=== PATIENT | male | born 1930 | race Caucasian/White ===

== ENCOUNTER 2018-07-20 10:57 | Emergency (ER) | payer MEDICARE, BC ==
[2018-07-20] MEDS ORDERED: MIDAZOLAM 2 MG/2 ML SOL IV PRN (11:01)
[2018-07-20] MEDS ORDERED: ALBUTEROL/IPRATROPIUM 1 VIAL SOL INH ONE (11:36)
[2018-07-20] MEDS ORDERED: ALBUTEROL/IPRATROPIUM 1 VIAL SOL ONE (11:42)
[2018-07-20 11:53] LABS: BASOPHILS % (AUTO) 0 % (0-3); EOSINOPHILS % (AUTO) 1 % (0-9); HEMATOCRIT 37 % (39-53); HEMOGLOBIN 11.5 gm/dl (13.5-17.7); LYMPHOCYTES % (AUTO) 16.7 % (10-50); MEAN CORPUSCULAR HEMOGLOBIN 28.3 pg (27.0-32.0); MEAN CORPUSCULAR HGB CONC 30.9 gm/dl (32.0-36.0); MEAN CORPUSCULAR VOLUME 92 fL (80-100); MONOCYTES % (AUTO) 15.5 % (0-12); NEUTROPHILS % (AUTO) 66.4 % (37-80)
[2018-07-20 12:03] LABS: INR 0.97 (0.86-1.12)
[2018-07-20 12:13] LABS: ALBUMIN 3.3 gm/dl (3.4-5.0); ALKALINE PHOSPHATASE 91 IU/L (46-116); ALT 55 IU/L (14-63); AST 39 IU/L (15-37); BILIRUBIN,TOTAL 0.5 mg/dl (0.2-1.0); BLOOD UREA NITROGEN 32 mg/dl (7-18); CALCIUM 8.8 mg/dl (8.5-10.1); GLUCOSE 67 mg/dl (74-106); POTASSIUM 4.6 mMol/L (3.5-5.1); SODIUM 141 mMol/L (136-145); TOTAL PROTEIN 6.6 gm/dl (6.4-8.2); TROP I < 0.017 ng/ml (0.000-0.056)
[2018-07-20 12:19] LABS: CARBON DIOXIDE 32.4 mEq/L (21-32); CHLORIDE 103 mMol/L (98-107)
[2018-07-20 14:13] VITALS: TEMP 97.6
[2018-07-20 18:50] VITALS: BP 157/98; PULSE 59; RESP 14; O2SAT 96
== END 2018-07-20 14:30 | disposition home or self-care (01) | DRG 204 ==
LOC: ED 10:57
DX: R06.02 Shortness of breath (principal); J44.1 Chronic obstructive pulmonary disease with (acute) exacerbation; R42 Dizziness and giddiness
CPT/HCPCS: 36415; 71045; 80053; 83880; 84484; 85025; 85610; 93005; 99283

== ENCOUNTER 2018-08-03 08:34 | Inpatient (IN) | payer MEDICARE, BC ==
[2018-08-03 09:35] LABS: BASOPHILS % (AUTO) 0 % (0-3); EOSINOPHILS % (AUTO) 2 % (0-9); HEMATOCRIT 36 % (39-53); HEMOGLOBIN 11.6 gm/dl (13.5-17.7); LYMPHOCYTES % (AUTO) 15.1 % (10-50); MEAN CORPUSCULAR HEMOGLOBIN 29.4 pg (27.0-32.0); MEAN CORPUSCULAR HGB CONC 32.3 gm/dl (32.0-36.0); MEAN CORPUSCULAR VOLUME 91 fL (80-100); MONOCYTES % (AUTO) 13.1 % (0-12); NEUTROPHILS % (AUTO) 68.9 % (37-80)
[2018-08-03 09:59] LABS: LACTIC ACID < 0.8 mMol/L (0.0-2.0)
[2018-08-03 10:00] LABS: ALBUMIN 3.5 gm/dl (3.4-5.0); ALKALINE PHOSPHATASE 101 IU/L (46-116); ALT 56 IU/L (14-63); AST 35 IU/L (15-37); BILIRUBIN,TOTAL 0.5 mg/dl (0.2-1.0); BLOOD UREA NITROGEN 23 mg/dl (7-18); CALCIUM 8.8 mg/dl (8.5-10.1); CHLORIDE 103 mMol/L (98-107); CREATININE 1.06 mg/dl (0.80-1.30); GLUCOSE 77 mg/dl (74-106); POTASSIUM 4.7 mMol/L (3.5-5.1); SODIUM 142 mMol/L (136-145); TOTAL PROTEIN 6.7 gm/dl (6.4-8.2); TROP I < 0.017 ng/ml (0.000-0.056)
[2018-08-03] MEDS ORDERED: SOLUMEDROL 125 MG/2 ML 125 MG/2 ML PDS IV ONE (10:13)
[2018-08-03] MEDS ORDERED: SOLUMEDROL 125 MG/2 ML 125 MG/2 ML PDS ONE (10:13)
[2018-08-03] MEDS: SODIUM CHLORIDE 0.9% FLUSH 10 ML SOL IV PRN ×2 (10:19→12:20)
[2018-08-03 10:28] LABS: APPEARANCE,URINE Clear; BILIRUBIN,URINE NEGATIVE (NEGATIVE); COLOR,URINE Yellow; GLUCOSE, URINE (UA) NEGATIVE (NEGATIVE); KETONES,URINE NEGATIVE (NEGATIVE); LEUKOCYTE ESTERASE ,URINE NEGATIVE (NEGATIVE); NITRATE,URINE NEGATIVE (NEGATIVE); OCCULT BLOOD,URINE NEGATIVE (NEG-TRACE); PH,URINE 5.5; UROBILINOGEN,URINE 0.2 (0.2-1.0 EU)
[2018-08-03 10:38] LABS: BACTERIA RARE (< 1+); CRYSTALS NEGATIVE (0-3 AVE/HPF); EPITHELIAL CELLS 0-2 (SQUAMOUS); RBC,URINE 0-2 (0-3AV/HPF); WBC,URINE 0-2 (0-5AV/HPF)
[2018-08-03] MEDS ORDERED: LORAZEPAM 2 MG/ML 1 MG in SODIUM CHLORIDE 20 ML 9 ML IV ONE (12:14)
[2018-08-03] MEDS ORDERED: LORAZEPAM 2 MG/ML SOL ONE (12:16)
[2018-08-03] MEDS: ENOXAPARIN 40 MG SOL SC SCH (14:29)
[2018-08-03 14:58] LABS: BASOPHILS % (AUTO) 0 % (0-3); EOSINOPHILS % (AUTO) 1 % (0-9); HEMATOCRIT 34 % (39-53); HEMOGLOBIN 11.1 gm/dl (13.5-17.7); LYMPHOCYTES % (AUTO) 6.9 % (10-50); MEAN CORPUSCULAR HEMOGLOBIN 29.9 pg (27.0-32.0); MEAN CORPUSCULAR HGB CONC 32.5 gm/dl (32.0-36.0); MEAN CORPUSCULAR VOLUME 92 fL (80-100); NEUTROPHILS % (AUTO) 90.2 % (37-80)
[2018-08-03] MEDS ORDERED: SODIUM CHLORIDE 0.9% FLUSH 10 ML SOL IV SCH (17:30)
[2018-08-03] MEDS: SODIUM CHLORIDE 0.9% FLUSH 10 ML SOL IV SCH (19:30)
[2018-08-03] MEDS: FAMOTIDINE 20 MG TAB PO SCH (20:34)
[2018-08-04] MEDS: ENOXAPARIN 40 MG SOL SC SCH ×3 (01:49→22:47)
[2018-08-04] MEDS: SODIUM CHLORIDE 0.9% FLUSH 10 ML SOL IV SCH ×5 (06:21→21:00)
[2018-08-04] MEDS: LEVOTHYROXINE SODIUM 50 MCG TAB PO SCH ×2 (06:21→06:43)
[2018-08-04 07:34] LABS: BASOPHILS % (AUTO) 0 % (0-3); EOSINOPHILS % (AUTO) 0 % (0-9); HEMATOCRIT 35 % (39-53); HEMOGLOBIN 11.1 gm/dl (13.5-17.7); LYMPHOCYTES % (AUTO) 9.7 % (10-50); MEAN CORPUSCULAR HEMOGLOBIN 29.5 pg (27.0-32.0); MEAN CORPUSCULAR HGB CONC 31.9 gm/dl (32.0-36.0); MEAN CORPUSCULAR VOLUME 92 fL (80-100); MONOCYTES % (AUTO) 12.1 % (0-12); NEUTROPHILS % (AUTO) 77.9 % (37-80)
[2018-08-04 07:37] LABS: CALCIUM 8.8 mg/dl (8.5-10.1); CREATININE 1.14 mg/dl (0.80-1.30)
[2018-08-04 07:56] LABS: CARBON DIOXIDE 33.5 mEq/L (21-32); POTASSIUM 4.5 mMol/L (3.5-5.1)
[2018-08-04] MEDS: ALBUTEROL HFA 60 PUFF/INHALER INH PRN ×3 (09:12→21:01)
[2018-08-04] MEDS: POLYETHYLENE GLYCOL 17 GM/1 TBS PDS PO SCH (09:12)
[2018-08-04] MEDS: FAMOTIDINE 20 MG TAB PO SCH ×2 (09:12→21:00)
[2018-08-04] MEDS: ALLOPURINOL 100 MG TAB PO SCH (09:12)
[2018-08-04] MEDS ORDERED: ALBUTEROL NEB SOL 2.5MG/3ML 1 VIAL SOL NEB PRN (15:14)
[2018-08-04] MEDS ORDERED: AZITHROMYCIN 500 MG PDS 500 MG in SODIUM CHLORIDE 0.9% 250 ML 250 ML IV SCH (15:15)
[2018-08-04] MEDS ORDERED: AZITHROMYCIN 500 MG PDS IV ONE ×2 (15:20→15:27)
[2018-08-04] MEDS ORDERED: SODIUM CHLORIDE 0.9% 250 ML 250 ML IV ONE (15:27)
[2018-08-04] MEDS: SOLUMEDROL 125 MG/2 ML 125 MG/2 ML PDS IV SCH ×2 (15:38→22:49)
[2018-08-04] MEDS: ALBUTEROL NEB SOL 2.5MG/3ML 1 VIAL SOL NEB PRN (15:39)
[2018-08-04] MEDS ORDERED: SOLUMEDROL 125 MG/2 ML 125 MG/2 ML PDS IV SCH (16:45)
[2018-08-05] MEDS: SODIUM CHLORIDE 0.9% FLUSH 10 ML SOL IV SCH ×4 (04:31→22:08)
[2018-08-05] MEDS: SOLUMEDROL 125 MG/2 ML 125 MG/2 ML PDS IV SCH ×4 (04:31→22:08)
[2018-08-05] MEDS: LEVOTHYROXINE SODIUM 50 MCG TAB PO SCH (07:19)
[2018-08-05] MEDS: POLYETHYLENE GLYCOL 17 GM/1 TBS PDS PO SCH (08:38)
[2018-08-05] MEDS: ALLOPURINOL 100 MG TAB PO SCH (08:38)
[2018-08-05] MEDS: FAMOTIDINE 20 MG TAB PO SCH ×2 (08:38→20:20)
[2018-08-05] MEDS ORDERED: AZITHROMYCIN 500 MG PDS IV ONE ×2 (08:43→09:00)
[2018-08-05] MEDS ORDERED: SODIUM CHLORIDE 0.9% 250 ML 250 ML IV ONE (08:43)
[2018-08-05] MEDS: SODIUM CHLORIDE 0.9% FLUSH 10 ML SOL IV PRN (08:56)
[2018-08-05] MEDS: ENOXAPARIN 40 MG SOL SC SCH ×2 (11:18→22:07)
[2018-08-05] MEDS: ALBUTEROL NEB SOL 2.5MG/3ML 1 VIAL SOL NEB PRN ×2 (13:44→22:13)
[2018-08-05] MEDS: AZITHROMYCIN 250 MG TAB PO SCH (22:16)
[2018-08-06] MEDS: SOLUMEDROL 125 MG/2 ML 125 MG/2 ML PDS IV SCH ×2 (03:40→10:20)
[2018-08-06] MEDS: SODIUM CHLORIDE 0.9% FLUSH 10 ML SOL IV SCH ×2 (03:40→11:46)
[2018-08-06] MEDS: SODIUM CHLORIDE 0.9% FLUSH 10 ML SOL IV PRN ×2 (03:41→11:44)
[2018-08-06] MEDS: LEVOTHYROXINE SODIUM 50 MCG TAB PO SCH (06:12)
[2018-08-06] MEDS: POLYETHYLENE GLYCOL 17 GM/1 TBS PDS PO SCH (09:17)
[2018-08-06] MEDS: FAMOTIDINE 20 MG TAB PO SCH ×2 (09:18→21:25)
[2018-08-06] MEDS: AZITHROMYCIN 250 MG TAB PO SCH (09:18)
[2018-08-06] MEDS: ALLOPURINOL 100 MG TAB PO SCH (09:18)
[2018-08-06] MEDS: ENOXAPARIN 40 MG SOL SC SCH ×2 (11:28→23:02)
[2018-08-06] MEDS: ALBUTEROL NEB SOL 2.5MG/3ML 1 VIAL SOL NEB PRN ×2 (11:33→21:31)
[2018-08-06 16:09] VITALS: TEMP 97.5
[2018-08-06] MEDS ORDERED: MAGNESIUM HYDROXIDE 30 ML SUS PO ONE (18:40)
[2018-08-06 21:46] VITALS: RESP 22
[2018-08-07 00:04] VITALS: O2SAT 91
[2018-08-07] MEDS: LEVOTHYROXINE SODIUM 50 MCG TAB PO SCH (06:57)
[2018-08-07 07:40] VITALS: BP 136/81; PULSE 62
[2018-08-07] MEDS: FAMOTIDINE 20 MG TAB PO SCH (09:54)
[2018-08-07] MEDS: POLYETHYLENE GLYCOL 17 GM/1 TBS PDS PO SCH (09:54)
[2018-08-07] MEDS: ALLOPURINOL 100 MG TAB PO SCH (09:55)
[2018-08-07] MEDS: AZITHROMYCIN 250 MG TAB PO SCH (09:55)
[2018-08-07] MEDS: ENOXAPARIN 40 MG SOL SC SCH (11:32)
== END 2018-08-07 16:34 | disposition home or self-care (01) | DRG 644 ==
LOC: ED 08:34 → UNDOADMIN 11:44 → ACUTE CARE 11:44
PROVIDERS: ADMIT Family Medicine; ATTEND Family Medicine
PROC: F01K5YZ Range of Motion and Joint Integrity Assessment of Musculoskeletal System - Upper Back / Upper Extremity using Other Equipment (ICD-10-PCS; principal; 2018-08-03)
PROC: F01K0FZ Muscle Performance Assessment of Musculoskeletal System - Upper Back / Upper Extremity using Assistive, Adaptive, Supportive or Protective Equipment (ICD-10-PCS; 2018-08-03)
PROC: F01ZBZZ Bed Mobility Assessment (ICD-10-PCS; 2018-08-03)
DX: E03.9 Hypothyroidism, unspecified (principal); J44.1 Chronic obstructive pulmonary disease with (acute) exacerbation; R42 Dizziness and giddiness; R26.81 Unsteadiness on feet; H53.8 Other visual disturbances; R53.1 Weakness; R06.02 Shortness of breath; R41.82 Altered mental status, unspecified
CPT/HCPCS: 36415; 70450; 71045; 80048; 80053; 81001; 83880; 84484; 85025; 93005; 94150; 94640; 94760; 94762; 96374; 96375; 99231; 99283; 99285; J0456; J1650; J2060; J2930; J7613; A9270-GY

== ENCOUNTER 2018-10-01 16:17 | Inpatient (IN) | payer MEDICARE, BC ==
[2018-10-01] MEDS ORDERED: WARFARIN SODIUM 1 MG TAB PO SCH (18:00)
[2018-10-01] MEDS ORDERED: ALBUTEROL NEB SOL 2.5MG/3ML 1 VIAL SOL NEB PRN (18:23)
[2018-10-01] MEDS ORDERED: CEFTRIAXONE 1 GM PDS ONE (19:09)
[2018-10-01] MEDS ORDERED: SODIUM CHLORIDE 0.9% 50 ML 50 ML IV ONE (19:09)
[2018-10-01] MEDS: ALBUTEROL/IPRATROPIUM 1 VIAL SOL INH SCH (19:24)
[2018-10-01] MEDS: CEFTRIAXONE 1 GM PDS 1 GM in SODIUM CHLORIDE 0.9% 50 ML 50 ML IV SCH (20:41)
[2018-10-01] MEDS: SODIUM CHLORIDE 0.9% FLUSH 10 ML SOL IV SCH (20:42)
[2018-10-01] MEDS ORDERED: RANITIDINE HCL 150 MG TAB PO SCH (21:00)
[2018-10-01] MEDS: SOLUMEDROL 125 MG/2 ML 125 MG/2 ML PDS IV SCH (21:27)
[2018-10-01] MEDS: ENOXAPARIN 80 MG SOL SC SCH (21:27)
[2018-10-01] MEDS: AZITHROMYCIN 250 MG TAB PO SCH (21:28)
[2018-10-01] MEDS: ALLOPURINOL 100 MG TAB PO SCH (21:28)
[2018-10-01] MEDS: FAMOTIDINE 20 MG TAB PO SCH (22:46)
[2018-10-02] MEDS: ALBUTEROL/IPRATROPIUM 1 VIAL SOL INH SCH ×4 (00:52→18:04)
[2018-10-02] MEDS: SOLUMEDROL 125 MG/2 ML 125 MG/2 ML PDS IV SCH ×4 (02:08→20:23)
[2018-10-02] MEDS: SODIUM CHLORIDE 0.9% FLUSH 10 ML SOL IV SCH ×5 (02:09→20:28)
[2018-10-02] MEDS: LEVOTHYROXINE SODIUM 50 MCG TAB PO SCH ×2 (06:16→09:01)
[2018-10-02 07:25] LABS: CALCIUM 8.8 mg/dl (8.5-10.1); CARBON DIOXIDE 30.8 mEq/L (21-32); CREATININE 1.09 mg/dl (0.80-1.30); POTASSIUM 4.3 mMol/L (3.5-5.1)
[2018-10-02 07:29] LABS: BASOPHILS % (AUTO) 0 % (0-3); EOSINOPHILS % (AUTO) 0 % (0-9); HEMATOCRIT 34 % (39-53); HEMOGLOBIN 10.6 gm/dl (13.5-17.7); LYMPHOCYTES % (AUTO) 6.2 % (10-50); MEAN CORPUSCULAR HEMOGLOBIN 28.9 pg (27.0-32.0); MEAN CORPUSCULAR HGB CONC 31.3 gm/dl (32.0-36.0); MEAN CORPUSCULAR VOLUME 92 fL (80-100); MONOCYTES % (AUTO) 2.5 % (0-12)
[2018-10-02] MEDS: POLYETHYLENE GLYCOL 17 GM/1 TBS PDS PO SCH (09:01)
[2018-10-02] MEDS: FAMOTIDINE 20 MG TAB PO SCH ×2 (09:04→20:25)
[2018-10-02] MEDS: ENOXAPARIN 80 MG SOL SC SCH ×2 (09:35→20:40)
[2018-10-02] MEDS ORDERED: CEFTRIAXONE 1 GM PDS ONE ×2 (15:59→20:07)
[2018-10-02] MEDS ORDERED: SODIUM CHLORIDE 0.9% 50 ML 50 ML IV ONE ×2 (16:00→20:07)
[2018-10-02] MEDS ORDERED: WARFARIN SODIUM 5 MG TAB ONE (17:45)
[2018-10-02] MEDS ORDERED: WARFARIN SODIUM 5 MG TAB PO ONE (18:00)
[2018-10-02] MEDS: CEFTRIAXONE 1 GM PDS 1 GM in SODIUM CHLORIDE 0.9% 50 ML 50 ML IV SCH (20:22)
[2018-10-02] MEDS: AZITHROMYCIN 250 MG TAB PO SCH (20:23)
[2018-10-02] MEDS: ALLOPURINOL 100 MG TAB PO SCH (20:24)
[2018-10-03] MEDS: SOLUMEDROL 125 MG/2 ML 125 MG/2 ML PDS IV SCH ×2 (01:23→07:34)
[2018-10-03] MEDS: ALBUTEROL/IPRATROPIUM 1 VIAL SOL INH SCH ×4 (01:23→18:05)
[2018-10-03] MEDS: SODIUM CHLORIDE 0.9% FLUSH 10 ML SOL IV SCH ×6 (01:30→20:23)
[2018-10-03] MEDS: LEVOTHYROXINE SODIUM 50 MCG TAB PO SCH (06:42)
[2018-10-03] MEDS: ENOXAPARIN 80 MG SOL SC SCH ×2 (07:33→20:23)
[2018-10-03] MEDS: FAMOTIDINE 20 MG TAB PO SCH (08:35)
[2018-10-03] MEDS: POLYETHYLENE GLYCOL 17 GM/1 TBS PDS PO SCH (08:35)
[2018-10-03] MEDS: WARFARIN SODIUM 2.5 MG TAB PO SCH (18:10)
[2018-10-03] MEDS: CEFTRIAXONE 1 GM PDS 1 GM in SODIUM CHLORIDE 0.9% 50 ML 50 ML IV SCH (18:10)
[2018-10-03] MEDS ORDERED: SOLUMEDROL 125 MG/2 ML 125 MG/2 ML PDS IV ONE (20:00)
[2018-10-03] MEDS: AZITHROMYCIN 250 MG TAB PO SCH (20:24)
[2018-10-03] MEDS: ALLOPURINOL 100 MG TAB PO SCH (20:24)
[2018-10-04] MEDS: ALBUTEROL/IPRATROPIUM 1 VIAL SOL INH SCH ×4 (00:42→18:31)
[2018-10-04] MEDS: SODIUM CHLORIDE 0.9% FLUSH 10 ML SOL IV SCH ×4 (02:12→21:23)
[2018-10-04] MEDS: LEVOTHYROXINE SODIUM 50 MCG TAB PO SCH (06:31)
[2018-10-04 07:52] LABS: INR 1.02 (0.86-1.12)
[2018-10-04] MEDS: ENOXAPARIN 80 MG SOL SC SCH ×2 (07:55→19:31)
[2018-10-04] MEDS: POLYETHYLENE GLYCOL 17 GM/1 TBS PDS PO SCH (08:49)
[2018-10-04] MEDS ORDERED: SODIUM CHLORIDE 0.9% 50 ML 50 ML IV ONE (17:59)
[2018-10-04] MEDS: WARFARIN SODIUM 2.5 MG TAB PO SCH (18:28)
[2018-10-04] MEDS: CEFTRIAXONE 1 GM PDS 1 GM in SODIUM CHLORIDE 0.9% 50 ML 50 ML IV SCH (18:33)
[2018-10-04] MEDS: ALLOPURINOL 100 MG TAB PO SCH (21:22)
[2018-10-04] MEDS: FAMOTIDINE 20 MG TAB PO SCH (21:22)
[2018-10-05] MEDS: ALBUTEROL/IPRATROPIUM 1 VIAL SOL INH SCH ×2 (00:41→06:16)
[2018-10-05] MEDS: SODIUM CHLORIDE 0.9% FLUSH 10 ML SOL IV SCH ×2 (02:19→09:35)
[2018-10-05] MEDS: LEVOTHYROXINE SODIUM 50 MCG TAB PO SCH (06:11)
[2018-10-05 07:22] LABS: INR 1.11 (0.86-1.12)
[2018-10-05] MEDS: ENOXAPARIN 80 MG SOL SC SCH (07:58)
[2018-10-05] MEDS: FAMOTIDINE 20 MG TAB PO SCH (07:59)
[2018-10-05] MEDS: POLYETHYLENE GLYCOL 17 GM/1 TBS PDS PO SCH (08:00)
[2018-10-05 08:31] VITALS: BP 134/73
[2018-10-05 08:33] VITALS: TEMP 98.3
[2018-10-05] MEDS ORDERED: PREDNISONE 20 MG TAB PO SCH (09:00)
[2018-10-05 09:03] VITALS: PULSE 88; RESP 18; O2SAT 95
== END 2018-10-05 12:25 | disposition home or self-care (01) | DRG 194 ==
LOC: RAD 16:17 → ACUTE CARE 17:50 → EDSTATUS 17:53
PROVIDERS: ADMIT Family Medicine; ATTEND Family Medicine
DX: J18.1 Lobar pneumonia, unspecified organism (principal); I82.890 Acute embolism and thrombosis of other specified veins; J44.1 Chronic obstructive pulmonary disease with (acute) exacerbation; E03.9 Hypothyroidism, unspecified; Z79.01 Long term (current) use of anticoagulants; M79.662 Pain in left lower leg; R42 Dizziness and giddiness; R06.02 Shortness of breath
CPT/HCPCS: 36415; 71275; 80048; 85025; 85610; 87040; 94150; 94640; J0696; J1650; J2930; J7613; Q9967; A9270-GY